=== PATIENT | female | born 1975 | race Caucasian/White ===

== ENCOUNTER 2018-06-14 21:40 | Emergency (ER) | payer OTHER ==
[~2018-06-14] VITALS: Ht 162.6 cm; Wt 63.5 kg
[2018-06-14 21:45] VITALS: Ht 162.6 cm; Wt 63.5 kg
[2018-06-14 23:06] LABS: CALCIUM 7.9 mg/dL (8.5-10.1); CARBON DIOXIDE 20.5 mmol/L (21-32); CHLORIDE SERUM 108 mmol/L (98-107); CREATININE SERUM 0.9 mg/dL (0.6-1.0); GFR1 > 60 mL/min; GLUCOSE SERUM 162 mg/dL (74-106); POTASSIUM SERUM 3.7 mmol/L (3.5-5.1); SODIUM SERUM 141 mmol/L (136-145)
[2018-06-14 23:14] LABS: BASOPHIL % 0.1 % (0-2); PLATELET COUNT 204 x10^3mcL (130-400); RED CELL DISTRIBUTION WIDTH 14.2 % (11.5-14.5)
[2018-06-14 23:19] LABS: ALKALINE PHOSPHATASE 44 U/L (46-116); ALT/SGPT 18 U/L (14-59); AST/SGOT 14 U/L (15-37); BILIRUBIN TOTAL 0.14 mg/dL (0.20-1.00); FREE T4 1.18 ng/dL (0.76-1.46); TOTAL PROTEIN, SERUM 6.2 g/dL (6.4-8.2)
[2018-06-14 23:24] LABS: ALBUMIN 3.1 g/dL (3.4-5.0)
[2018-06-15 00:55] LABS: microscopic required? YES; urine erythrocyte 3+ (NEGATIVE)
[2018-06-15 01:00] LABS: AMPHETAMINE QUAL UR NONE DETECTED (See below)
[2018-06-15 03:27] VITALS: BP 111/63
== END 2018-06-15 03:15 | disposition home or self-care (01) ==
LOC: ED 21:40
PROVIDERS: Emergency Medicine
DX: R56.9 Unspecified convulsions (principal); N39.0 Urinary tract infection, site not specified
CPT/HCPCS: 83880; 84439; 87804; J1953